=== PATIENT | female | born 1995 | race Caucasian/White ===

== ENCOUNTER 2019-01-28 23:05 | Emergency (ER) | payer BC ==
[~2019-01-28] VITALS: Ht 177.8 cm; Wt 79.1 kg
[2019-01-28 23:19] VITALS: BP 147/84; PULSE 124; RESP 20; Ht 177.8 cm; Wt 79.1 kg
--- NOTE | 2019-01-29 02:13 | ERD ---
ER Documentation Chief Complaint Chief Complaint chest discomfort HPI The patient is a 23-year-old female, presenting to the ER because of left-sided chest discomfort about 3 hours ago, she took ibuprofen with good response. She denies any chest discomfort at this time, denies similar symptoms previously, denies chest pain with vomiting/exertion/radiation/diaphoresis, dyspnea, abdominal pain, vomiting, dysuria, diarrhea. She does not smoke nor drink Past medical history: None Past surgical history: IUD, cholecystectomy ROS All systems reviewed and are negative except as per history of present illness. Medications Home Meds Active Scripts Ibuprofen* (Motrin*) 600 Mg Tab, 600 MG PO Q6H PRN for PAIN AND OR ELEVATED TEMP, #15 TAB Prov:KUSUM HERNANDEZ MD 01/29/19 Allergies Allergies: Coded Allergies: Tetracyclines (Verified Allergy, Unknown, 01/28/19) PMhx/Soc Medical and Surgical Hx: pt denies Medical Hx, pt denies Surgical Hx Hx Alcohol Use: No Hx Substance Use: No Hx Tobacco Use: No Smoking Status: Never smoker Physical Exam Vitals Vital Signs Date Temp Pulse Resp B/P (MAP) Pulse Ox O2 O2 Flow FiO2 Time Delivery Rate 01/28/19 98.3 124 20 147/84 98 23:19 (105) Physical Exam Const: No acute distress. Head: Atraumatic. Eyes: Normal Conjunctiva. ENT: Normal External Ears, Nose and Mouth. Neck: Full range of motion. No meningismus. Resp: Clear to auscultation bilaterally. Cardio: Regular rate and rhythm. Abd: Soft, non distended, normal bowel sounds, non tender. Skin: No petechiae or rashes. Back: No midline or flank tenderness. Ext: No cyanosis, or edema. Neur: Awake and alert. No focal deficit Psych: Normal Mood and Affect. Results 24 hrs Laboratory Tests Test 01/29/19 02:22 01/29/19 02:23 Bedside Urine pH (LAB) 6.0 Bedside Urine Protein (LAB) Trace Bedside Urine Glucose (UA) Negative Bedside Urine Ketones (LAB) Trace Bedside Urine Blood 2+ Bedside Urine Nitrite (LAB) Negative Bedside Urine Leukocyte Esterase (L 1+ POC Beta HCG, Qualitative NEGATIVE Procedures/MDM EKG: Read by emergency physician Rate/Rhythm: Normal Sinus Rhythm 96 beats/min QRS, ST, T-waves: No ST elevation, no T inversion Impression: Normal EKG MEDICAL MAKING DECISION: The patient is a 23-year-old female, presenting with acute chest discomfort, most likely musculoskeletal in origin, denies any chest pain or discomfort at this time. I do not suspect acute ACS, PNA, PTX The differential diagnoses considered include but are not limited to acute coronary syndrome, acute myocardial infarction, pericarditis, pulmonary embolism, aortic dissection, pneumonia, pleural effusion, pneumothorax, GERD, chest wall pain. Departure Diagnosis: Primary Impression: Chest wall pain Condition: Good Comments She was discharged with Motrin The patient's blood pressure was elevated (>120/80) but appears stable without evidence of hypertension emergency or urgency. The patient was counseled about the risks of hypertension and urged to pursue outpatient monitoring and therapy within a week with their primary care physician. I discussed the findings with the patient. I advised the patient to follow-up with the primary physician in about 2-3 days, sooner if needed and return if any concern. Disclaimer: Inadvertent spelling and grammatical errors are likely due to EHR/dictation software use and do not reflect on the overall quality of patient care. Also, please note that the electronic time recorded on this note does not necessarily reflect the actual time of the patient encounter. KUSUM HERNANDEZ MD Jan 29, 2019 02:13
[2019-01-29] MEDS ORDERED: IBUP-1542 PO (02:40)
== END 2019-01-29 02:48 | disposition home or self-care (01) ==
LOC: E/R 23:05
DX: R07.89 Other chest pain (principal)
CPT/HCPCS: 81003; 81025; 99283